=== PATIENT | male | born 1950 | race Hispanic/Latino ===

== ENCOUNTER → 2021-09-17 | Outpatient (CLI) | payer MEDICARE | END | disposition home or self-care (01) | LOC: RAH 13:37 | PROVIDERS: ATTEND Orthopaedic Surgery | DX: Z01.818 Encounter for other preprocedural examination (principal); M17.11 Unilateral primary osteoarthritis, right knee; M16.11 Unilateral primary osteoarthritis, right hip; I77.810 Thoracic aortic ectasia | CPT/HCPCS: 71046; 73700 ==

== ENCOUNTER 2021-10-19 05:38 | Observation (INO) | payer MEDICARE ==
[2021-10-18 14:59] LABS: EOSINOPHILS % (AUTO) 3.2 % (0.0-8.0); HEMATOCRIT 46.8 % (42-54); LYMPHOCYTES % (AUTO) 33.6 % (21.0-51.0); MEAN CORPUSCULAR HEMOGLOBIN 33.9 pg (27.0-33.0); MEAN CORPUSCULAR HGB CONC 34.8 g/dL (32.0-36.0); MEAN CORPUSCULAR VOLUME 97.3 fL (79-99); MONOCYTES % (AUTO) 10.8 % (3.0-13.0); PLATELET COUNT (AUTO) 188 K/uL (130-400); RED BLOOD CELL COUNT(AUTO) 4.81 MIL/uL (4.50-6.20); RED CELL DISTRIBUTION WIDTH 13.7 % (11.0-15.5); WHITE BLOOD COUNT (AUTO) 7.2 K/uL (4.8-10.8)
[2021-10-18 15:08] LABS: CREATININE 1.1 mg/dL (0.5-1.5); POTASSIUM 4.2 mmol/L (3.5-5.1)
[2021-10-18 15:11] LABS: INR 1.02 (0.85-1.15); PROTHROMBIN TIME 11.1 SEC (9.6-11.6)
[2021-10-18 15:12] LABS: PARTIAL THROMBOPLASTIN TIME 26.2 SEC (26.3-35.5)
[2021-10-18 15:25] VITALS: BP 188/109
[~2021-10-19] VITALS: Ht 172.7 cm; Wt 93.3 kg
[2021-10-19] VITALS (23 sets, daily range): BP systolic 108–150; BP diastolic 70–100
[2021-10-19] MEDS ORDERED: CEFAZOLIN SODIUM 1 GM VIAL IVP SCH (06:00)
[2021-10-19] MEDS: LACTATED RINGERS 1000ML 1,000 ML IV SCH ×4 (06:40→11:23)
[2021-10-19] MEDS ORDERED: VANCOMYCIN 1G VIAL ONE (06:50)
[2021-10-19] MEDS ORDERED: TRANEXAMIC ACID 1000MG/10ML ONE ×2 (06:50→06:52)
[2021-10-19] MEDS ORDERED: FENTANYL CITRATE PF 50 MCG/1 ML 5ML AMP IV ONE (06:59)
[2021-10-19] MEDS ORDERED: MIDAZOLAM HCL 1 MG/ML 2ML VIAL ONE ×2 (06:59→07:07)
[2021-10-19] MEDS ORDERED: PROPOFOL 10 MG/ML 20ML VIAL IV ONE ×2 (06:59→08:46)
[2021-10-19] MEDS ORDERED: ROCURONIUM 10MG/1ML SYR 10 MG/ML ML ONE (06:59)
[2021-10-19] MEDS ORDERED: ONDANSETRON 4MG INJ ONE (07:07)
[2021-10-19] MEDS ORDERED: CEFAZOLIN SODIUM 2 GM VIAL IV ONE (07:15)
[2021-10-19] MEDS ORDERED: HYDROCODONE/ACETAMINOPHEN 5/325 MG TAB PO PRN (07:30)
[2021-10-19] MEDS: ACETAMINOPHEN 500 MG TABLET PO SCH ×3 (07:30→23:30)
[2021-10-19] MEDS ORDERED: ONDANSETRON 4MG INJ IVP PRN (07:30)
[2021-10-19] MEDS ORDERED: MORPHINE 4 MG SYG IVP PRN (07:30)
[2021-10-19] MEDS ORDERED: TRANEXAMIC ACID 1000MG/10ML TP ONE (07:51)
[2021-10-19] MEDS ORDERED: PROPOFOL 1000 MG/100 ML 100 ML IV ONE (08:48)
[2021-10-19] MEDS ORDERED: ROPIVACAINE 0.5% 5MG/ML 30ML IJ ONE (09:06)
[2021-10-19] MEDS ORDERED: DEXAMETHASONE SOD PHOSPHATE 10MG/ML 1ML VIAL ONE (09:07)
[2021-10-19] MEDS ORDERED: GLYCOPYRROLATE 1 MG/5 ML SYRINGE ONE (09:19)
[2021-10-19] MEDS ORDERED: NEOSTIGMINE 5MG/5ML SYR IV ONE (09:20)
[2021-10-19] MEDS: FAMOTIDINE 20MG TAB PO SCH ×2 (11:17→19:51)
[2021-10-19] MEDS: POLYETHYLENE GLYCOL 3350 17 GM POWD.PACK PO SCH (11:17)
[2021-10-19] MEDS: ASPIRIN 81 MG EC TAB PO SCH ×2 (11:17→19:51)
[2021-10-19] MEDS: TRAMADOL HCL 50 MG TABLET PO SCH ×3 (11:23→23:34)
[2021-10-19] MEDS: 0.9%NACL 1000ML 1,000 ML IV SCH ×2 (11:42→17:30)
[2021-10-19] MEDS: CEFAZOLIN SODIUM 1 GM VIAL IVP SCH ×2 (13:17→19:50)
[2021-10-19] MEDS: HYDROCODONE/ACETAMINOPHEN 10/325 MG TAB PO PRN (19:52)
[2021-10-20] VITALS: BP 121/74
[2021-10-20] MEDS: HYDROCODONE/ACETAMINOPHEN 10/325 MG TAB PO PRN (01:39)
[2021-10-20] MEDS: 0.9%NACL 1000ML 1,000 ML IV SCH (02:52)
[2021-10-20 04:00] VITALS: BP 121/75
[2021-10-20 04:39] LABS: HEMATOCRIT 41.3 % (42-54); MEAN CORPUSCULAR HEMOGLOBIN 34.1 pg (27.0-33.0); MEAN CORPUSCULAR HGB CONC 35.4 g/dL (32.0-36.0); MEAN CORPUSCULAR VOLUME 96.5 fL (79-99); RED BLOOD CELL COUNT(AUTO) 4.28 MIL/uL (4.50-6.20); RED CELL DISTRIBUTION WIDTH 13.8 % (11.0-15.5); WHITE BLOOD COUNT (AUTO) 12.6 K/uL (4.8-10.8)
[2021-10-20] MEDS: TRAMADOL HCL 50 MG TABLET PO SCH ×2 (05:18→11:28)
[2021-10-20 08:00] VITALS: BP 120/83
[2021-10-20] MEDS: ASPIRIN 81 MG EC TAB PO SCH (08:28)
[2021-10-20] MEDS: FAMOTIDINE 20MG TAB PO SCH (08:28)
[2021-10-20] MEDS: ACETAMINOPHEN 500 MG TABLET PO SCH (08:30)
[2021-10-20] MEDS: POLYETHYLENE GLYCOL 3350 17 GM POWD.PACK PO SCH (08:30)
[2021-10-20 12:00] VITALS: BP 109/69
[2021-10-22] MEDS ORDERED: BISACODYL 10 MG SUPP.RECT RC PRN (07:30)
== END 2021-10-20 14:53 | disposition home or self-care (01) ==
LOC: DAH 05:38 → DAHIP 05:39 → 4CH 11:01
PROVIDERS: ADMIT Orthopaedic Surgery; ATTEND Orthopaedic Surgery
DX: M17.11 Unilateral primary osteoarthritis, right knee (principal); Z20.822 Contact with and (suspected) exposure to COVID-19; I12.9 Hypertensive chronic kidney disease with stage 1 through stage 4 chronic kidney disease, or unspecified chronic kidney disease; N18.30 Chronic kidney disease, stage 3 unspecified; M25.569 Pain in unspecified knee; E83.52 Hypercalcemia; R94.5 Abnormal results of liver function studies; Z96.651 Presence of right artificial knee joint; Z79.899 Other long term (current) drug therapy; Z98.890 Other specified postprocedural states
CPT/HCPCS: 27447; 36415 ×2; 64445; 76942; 80048 ×2; 85025; 85027; 85610; 85730; 87635; 87641; 93005; 96374; 96376; 97039 ×3; 97116 ×3; 97161; 97530 ×2; A4215; A4221; A4222; A4223; A4649 ×4; A4663; A5120; A6260; C1776; C9803; G0168; G0378 ×29; J0690 ×4; J1100; J2250 ×2; J2405; J2704 ×3; J2710; J2795; J3010; J3370; J3490 ×4; J7030; J7120

== ENCOUNTER → 2023-11-14 | Outpatient (CLI) | payer MEDICARE ==
[~2023-11-14] MED LIST: IOHEXOL 350 MG/ML 100ML INFUS..BTL IV ONE
== END | disposition home or self-care (01) ==
LOC: RAH 09:54
PROVIDERS: ATTEND Internal Medicine
DX: K57.30 Diverticulosis of large intestine without perforation or abscess without bleeding (principal); K42.9 Umbilical hernia without obstruction or gangrene; M47.815 Spondylosis without myelopathy or radiculopathy, thoracolumbar region; I25.10 Atherosclerotic heart disease of native coronary artery without angina pectoris; I70.90 Unspecified atherosclerosis
CPT/HCPCS: 74178; Q9967